=== PATIENT | female | born 1950 | race Caucasian/White ===

== ENCOUNTER → 2024-12-28 09:00 | Outpatient (REF) | payer MEDICARE, OTHER, SELFPAY | LOC: HWRCS 09:00 | PROVIDERS: ATTENDING PHYSICIAN Internal Medicine Cardiovascular Disease; FAMILY PHYSICIAN Nurse Practitioner Gerontology | DX: R06.02 Shortness of breath (principal) | CPT/HCPCS: 93306 ==